=== PATIENT | male | born 1980 | race Caucasian/White ===

== ENCOUNTER 2018-02-21 03:17 | Emergency (ER) | payer OTHER ==
[2018-02-21 03:34] VITALS: BMI 47.4
--- NOTE | 2018-02-21 04:04 | ED PDOC ---
HPI: Psych/Substance Abuse Time Seen by Provider: 02/21/18 03:33 Chief Complaint (Nursing): Alcohol Ingestion Chief Complaint (Provider): Alcohol Ingestion ED Caveat: Intoxicated History Per: Patient History/Exam Limitations: intoxication Onset/Duration Of Symptoms: Mins Current Symptoms Are (Timing): Still Present Suicide/Self Injury Attempted (Context): None Additional Complaint(s): 37 year old male presents to the ED for evaluation of substance abuse or alcohol intoxication. Patient is unable to give any history due to intoxication. PMD: none provided Past Medical History Reviewed: Historical Data, Nursing Documentation, Vital Signs - Medical History PMH: Asthma - Surgical History Surgical History: No Surg Hx - Family History Family History: States: Unknown Family Hx - Immunization History Hx Tetanus Toxoid Vaccination: Yes Hx Influenza Vaccination: Yes Hx Pneumococcal Vaccination: Yes - Home Medications Home Medications: Ambulatory Orders Medication Instructions Recorded Rivaroxaban [Xarelto] 10 mg PO DAILY 10/17/16 - Allergies Allergies/Adverse Reactions: Allergies Allergy/AdvReac Type Severity Reaction Status Date / Time No Known Allergies Allergy Verified 08/01/17 06:03 Review of Systems ROS Statement: Except As Marked, All Systems Reviewed And Found Negative Physical Exam - Reviewed Nursing Documentation Reviewed: Yes Vital Signs Reviewed: Yes - Physical Exam Appears: Positive for: No Acute Distress (agitated) Head Exam: Positive for: NORMOCEPHALIC (abrasion on right forehead ) Skin: Positive for: Warm, Dry Eye Exam: Positive for: EOMI, Normal appearance, PERRL Neck: Positive for: Normal, Painless ROM, Supple Extremity: Positive for: Normal ROM (x 4). Negative for: Deformity Neurologic/Psych: Positive for: Alert. Negative for: Oriented - ECG Pulse Ox Interpretation: Normal Medical Decision Making Medical Decision Makin Impression: substance abuse, alcohol intoxication, possible head injury Initial Plan: --CT head --Etoh serum --UDS --Ativan 2 mg IM --Haldol 5 mg IM 04:12 --Restraints are in place as agitation is still present. CT FINDINGS: Brain: Unremarkable. No hemorrhage. No significant white matter disease. No edema. Ventricles: Unremarkable. No ventriculomegaly. Bones/joints: Unremarkable. No acute fracture. Soft tissues: Unremarkable. Sinuses: There is minimal mucoperiosteal thickening in the maxillary and ethmoid sinuses, consistent with chronic sinusitis. Mastoid air cells: Unremarkable as visualized. No mastoid effusion. IMPRESSION: No evidence of an acute intracranial abnormality. Scribe Attestation: Documented by Maeve Irizarry, acting as a scribe for Vandana Lantigua MD Provider Scribe Attestation: All medical record entries made by the Scribe were at my direction and personally dictated by me. I have reviewed the chart and agree that the record accurately reflects my personal performance of the history, physical exam, medical decision making, and the department course for this patient. I have also personally directed, reviewed, and agree with the discharge instructions and disposition. Disposition - Clinical Impression Clinical Impression: Alcohol abuse with intoxication, Cocaine abuse - Patient ED Disposition Is Patient to be Admitted: Transfer of Care - Disposition Disposition: Transfer of Care Disposition Time: 07:00 Condition: STABLE Additional Instructions: FOLLOW-UP WITH PMD WITHIN 2 DAYS FOR REEVALUATION. Instructions: Cocaine Use Disorder, Alcohol Abuse and Alcoholism (DC) Forms: [employer] (Tajik) Patient Signed Over To: Jass Hernández Handoff Comments: pending clinical sobriety and final dispo
[2018-02-21 05:26] LABS: BARBITURATES, UR NEGATIVE (NEGATIVE); BENZODIAZEPINES, UR NEGATIVE (NEGATIVE); OPIATES, UR NEGATIVE (NEGATIVE); PHENCYCLIDINE, UR NEGATIVE (NEGATIVE)
--- NOTE | 2018-02-21 07:19 | ED PDOC ---
- ECG O2 Sat by Pulse Oximetry: 96 (RA) Pulse Ox Interpretation: Normal - Progress ED Course And Treament: 950: Dr. Olguin to take over care. Fu on sobriety. Stable. Vitals maintained. Medical Decision Making Medical Decision Making: Time: 0700 -- 37 y/o male with a PMHx of substance and alcohol abuse presents to the ED for evaluation of alcohol intoxication or substance abuse, pending clinical sobriety. Scribe Attestation: Documented by James Babin acting as a scribe for Dr. Jass Hernández MD. Provider Scribe Attestation: All medical record entries made by the Scribe were at my direction and personally dictated by me. I have reviewed the chart and agree that the record accurately reflects my personal performance of the history, physical exam, medical decision making, and the department course for this patient. I have also personally directed, reviewed, and agree with the discharge instructions and disposition. Disposition - Clinical Impression Clinical Impression: Alcohol abuse - POA Present On Arrival: None - Disposition Disposition: Transfer of Care Disposition Time: 09:51 Condition: FAIR Patient Signed Over To: Maru Olguin
--- NOTE | 2018-02-21 09:49 | CT ---
Date of service: 02/21/2018 PROCEDURE: CT HEAD WITHOUT CONTRAST. HISTORY: head injury COMPARISON: None available. TECHNIQUE: Axial computed tomography images were obtained through the head/brain without intravenous contrast. Radiation dose: Total exam DLP = 921 mGy-cm. This CT exam was performed using one or more of the following dose reduction techniques: Automated exposure control, adjustment of the mA and/or kV according to patient size, and/or use of iterative reconstruction technique. FINDINGS: HEMORRHAGE: No intracranial hemorrhage. BRAIN: No mass effect or edema. No atrophy or chronic microvascular ischemic changes. VENTRICLES: Unremarkable. No hydrocephalus. CALVARIUM: Unremarkable. PARANASAL SINUSES: Under pneumatization of the left frontal sinus. MASTOID AIR CELLS: Unremarkable as visualized. No inflammatory changes. OTHER FINDINGS: None. IMPRESSION: No acute intracranial pathology.
[2018-02-21 10:10] VITALS: O2SAT 99
--- NOTE | 2018-02-21 10:16 | ED PDOC ---
- ECG O2 Sat by Pulse Oximetry: 99 (RA) Pulse Ox Interpretation: Normal Medical Decision Making Medical Decision Making: Time: 1000 -- Patient endorsed to Dr. Olguin by Dr. Hernández, pending clinical sobriety. 10:55 Pt AAOX3, steady gait. Scribe Attestation: Documented by James Babin acting as a scribe for Dr. Maru Olguin MD. Provider Scribe Attestation: All medical record entries made by the Scribe were at my direction and personally dictated by me. I have reviewed the chart and agree that the record accurately reflects my personal performance of the history, physical exam, medical decision making, and the department course for this patient. I have also personally directed, reviewed, and agree with the discharge instructions and disposition. Disposition - Clinical Impression Clinical Impression: Alcohol abuse with intoxication, Cocaine abuse - POA Present On Arrival: Falls Or Trauma - Disposition Disposition: Routine/Home Disposition Time: 10:59 Condition: IMPROVED Additional Instructions: FOLLOW-UP WITH PMD WITHIN 2 DAYS FOR REEVALUATION. Instructions: Cocaine Use Disorder, Alcohol Abuse and Alcoholism (DC) Forms: [employer] (Filipino)
[2018-02-21 11:05] VITALS: BP 138/81; PULSE 79; RESP 18; TEMP 98.8
== END 2018-02-21 11:15 | disposition home or self-care (01) ==
LOC: H.ER 03:17
DX: F10.129 Alcohol abuse with intoxication, unspecified (principal); F14.10 Cocaine abuse, uncomplicated; S09.90XA Unspecified injury of head, initial encounter; W19.XXXA Unspecified fall, initial encounter; Y92.89 Other specified places as the place of occurrence of the external cause